=== PATIENT | female | born 1990 | race African-American/Black ===

== ENCOUNTER 2016-07-30 09:12 | Emergency (ER) | payer OTHER ==
--- NOTE | 2016-07-30 10:16 | ERRECORD ---
[facility] EMERGENCY RECORD HPI COUGH (09:24 WMEI) CHIEF COMPLAINT: Patient presents for evaluation of cough, productive of green sputum. HISTORIAN: History provided by patient. LOCATION: Symptoms are localized, sinus pressure. QUALITY: Denies choking sensation, Symptoms described as wheezing, occ at night. TIME COURSE: Gradual onset of symptoms, 2, days priror to arrival. ASSOCIATED WITH: No associated chest pain, No associated fever. EXACERBATED BY: Patient's condition exacerbated by nothing. RELIEVED BY: Patient's condition relieved by nothing. ROS (09:25 WMEI) CONSTITUTIONAL: Historian denies chills, denies fever. EYES: Historian denies eye pain, denies eye discharge. ENT: Historian denies otalgia, reports rhinorrhea, reports sinus pain, reports sore throat. CARDIOVASCULAR: Historian denies chest pain, no radiation, Historian denies diaphoresis. RESPIRATORY: Historian reports cough, denies shortness of breath, reports sputum. green. GI: Historian denies abdominal pain, denies nausea, denies vomiting. MUSCULOSKELETAL: Historian denies arthralgias, denies joint swelling, reports myalgias. SKIN: Historian denies skin changes, denies skin lesions. NEUROLOGIC: Historian denies confusion, denies dizziness, denies focal weakness, denies mental status changes. PSYCHIATRIC: Historian denies alcohol abuse, denies anxiety, denies drug abuse. PAST MEDICAL HISTORY (09:22 LGIB) MEDICAL HISTORY: Past medical history includes history of diabetes, Type II, Past medical history includes pulmonary disease, asthma. VERIFIED 07/30/16. FEMALE SURGICAL HISTORY: Surgical history of tonsillectomy. VERIFIED 07/30/16. PSYCHIATRIC HISTORY: No previous psychiatric history. SOCIAL HISTORY: Patient has no smoking history, Patient denies alcohol use, Patient denies drug use. VERIFIED 07/30/16. FAMILY HISTORY: Family history includes asthma, sibling, Family history includes coronary artery disease, father, maternal grandmother, Family history includes cerebral vascular accident, mother, father, Family history includes diabetes, father, maternal grandmother, Family history includes hypertension, father, maternal grandmother, Family history includes seizures, sibling. No significant family history. KNOWN ALLERGIES No Known Drug Allergies &a-1R&a+25V*p+0X*e5041V*c202B*c15G*c2P*p-0X&a-25V&a+1R Name: Barbie Douglas : 1990 F25 MedRec: [id number] AcctNum: [id number] Prepared: Sat Jul 30, 2016 19:52 by Interface Page 1 of 3 pMD [facility] EMERGENCY RECORD CURRENT MEDICATIONS (09:21 LGIB) glipiZIDE: TABLET : Strength - 5 mg : ORAL Patient Dose: 1 tab(s) Oral 2 times a day. metFORMIN: TABLET : Strength - 1,000 mg : ORAL Patient Dose: 1 tab(s) Oral 2 times a day. VITAL SIGNS (09:20 AHOO) VITAL SIGNS: BP: 133/95, Pulse: 91, Resp: 20, Temp: 98.3 (Oral), Pain: 8, O2 sat: 99 on Room Air, Time: 07/30/2016 09:20. PHYSICAL EXAM (09:26 WMEI) CONSTITUTIONAL: Vital Signs Reviewed, Patient afebrile, Patient appears non toxic, Patient alert and oriented to person, place and time. HEAD: Head exam included findings of head atraumatic, normocephalic. EYES: Conjunctiva normal, Sclera normal. ENT: Ear exam normal, Nose exam normal, Pharynx, injected bilaterally, no exudate, Maxillary sinuses with, tenderness bilaterally. NECK: Neck exam included findings of normal range of motion, Trachea midline. RESPIRATORY CHEST: Breath sounds clear, No wheezing, Chest exam included findings of chest movement symmetrical. ABDOMEN FEMALE: Abdominal exam included findings of abdomen nontender, Bowel sounds normal, Liver normal, Spleen normal. BACK: Back exam included findings of normal inspection, range of motion normal. UPPER EXTREMITY: Upper extremity exam included findings of inspection normal, Range of motion normal, Motor strength normal. LOWER EXTREMITY: Left lower leg exam normal, Right lower leg exam normal. NEURO: [place] coma scale 15, Neuro exam findings include patient oriented to person, place and time, Gait normal. SKIN: Skin exam included findings of skin warm, dry, and normal in color. LYMPHATIC: Lymphatic exam normal. PSYCHIATRIC: Psychiatric exam included findings of patient oriented to person place and time, Normal affect, Judgment normal, Insight normal. PROBLEM LIST No recorded problems DIAGNOSIS (09:57 WMEI) FINAL: PRIMARY: Acute bronchitis, ADDITIONAL: ACUTE SINUSITIS UNSPECIFIED. &a-1R&a+25V*p+0X*x2543S*c202B*c15G*c2P*p-0X&a-25V&a+1R Name: Barbie Douglas : 1990 5 MedRec: [id number] AcctNum: [id number] Prepared: Arjun Jul 30, 2016 19:52 by Interface Page 2 of 3 pMD [facility] EMERGENCY RECORD PRESCRIPTION (09:56 WMEI) Tessalon: CAPSULE : 200 mg : ORAL : Quantity: 1 Unit: tab(s) Route: ORAL Schedule: every 8 hours PRN Dispense: 21 Unit: tab(s) May substitute. Refills: No Refills . NOTES: No refills. Zithromax oral: CAPSULE : 250 mg : ORAL : Quantity: 1 Unit: tab(s) Route: ORAL Schedule: once a day (in the morning) Dispense: 6 Unit: tab(s) May substitute. Refills: No Refills . NOTES: ^s=No refills No refills. DISPOSITION PATIENT: Disposition Type: Discharge, Disposition: *Discharge Home. (09:57 WMEI) Patient left the department. (10:05 [facility]) Noonan: AHOO=KAYLEIGH Gifford, October LGIB=JIM Costello Lauren WMEI=DO Lockett William &a-1R&a+25V*p+0X*k1441R*c202B*c15G*c2P*p-0X&a-25V&a+1R Name: Barbie Douglas : 1990 F25 MedRec: [id number] AcctNum: [id number] Prepared: Arjun Jul 30, 2016 19:52 by Interface Page 3 of 3 pMD MTDD
--- NOTE | 2016-07-30 10:20 | PICIS ---
[facility] EMERGENCY RECORD TRIAGE ([facility] Jul 30, 2016 09:20 LGIB) TRIAGE NOTES: PRODUCTIVE COUGH, SORE THROAT. ([facility] Jul 30, 2016 09:20 LGIB) PATIENT: NAME: Barbie Douglas, AGE: 25, GENDER: female, : Sat 1990, TIME OF GREET: Sat Jul 30, 2016 09:13, PREFERRED LANGUAGE: Turkmen, ETHNICITY: Not or , ECODE BILLING MAP: [facility], SSN: [id number], Zip Code: [address], KG WEIGHT: [phone], PHONE: , , , PERSON ID: [id number], PAYMENT: [employer], PCP: GENA. ([facility] Jul 30, 2016 09:20 LGIB) COMPLAINT: COUGH, SORE THROAT. ([facility] Jul 30, 2016 09:20 LGIB) ADMISSION: URGENCY: 4 Non Urgent, ADMISSION SOURCE: Home, TRANSPORT: CAR, BED: ER -02. ([facility] Jul 30, 2016 09:20 LGIB) SIRS SCORING: Heart Rate 55-109 (0), Temp range 96.8-101.1 (0), respiratory rate 12-24 (0), Mental Status altered: no (0), Total SIRS Score 0. (09:22 LGIB) LMP: Last menstrual period: 07/27/2016. (09:22 LGIB) TREATMENTS IN PROGRESS: Treatments given Prehospital: DAYQUIL 5 HOURS [employer]ORDIN[employer]. (09:22 LGIB) PROVIDERS: TRIAGE NURSE: Jaye Costello RN. ([facility] Jul 30, 2016 09:20 LGIB) PREVIOUS VISIT ALLERGIES: No Known Drug Allergies. ([facility] Jul 30, 2016 09:20 LGIB) No Known Drug Allergies. (09:22 LGIB) KNOWN ALLERGIES No Known Drug Allergies CURRENT MEDICATIONS (09:21 LGIB) glipiZIDE: TABLET : Strength - 5 mg : ORAL Patient Dose: 1 tab(s) Oral 2 times a day. metFORMIN: TABLET : Strength - 1,000 mg : ORAL Patient Dose: 1 tab(s) Oral 2 times a day. VITAL SIGNS (09:20 AHOO) VITAL SIGNS: BP: 133/95, Pulse: 91, Resp: 20, Temp: 98.3 (Oral), Pain: 8, O2 sat: 99 on Room Air, Time: 07/30/2016 09:20. NURSING ASSESSMENT: RESPIRATORY /CHEST (09:25 LGIB) CONSTITUTIONAL: Complex assessment performed, Patient arrives ambulatory, Gait steady, History obtained from patient, Patient appears comfortable, Patient cooperative, Patient alert, Oriented to person, place and time, Skin warm, Skin dry, Skin normal in color, Mucous membranes pink, Mucous membranes moist, Patient is well-groomed, Patient complains of COUGH, SORE THROAT. PAIN: on a scale 0-10 patient rates pain as 8, PT NOT APPEARING TO BE IN SEVERE PAIN. PAIN DOES WORSEN WHILE COUGHING., Nothing has been tried to alleviate the &a-1R&a+25V*p+0X*a5838X*c202B*c15G*c2P*p-0X&a-25V&a+1R Name: Barbie Douglas : 1990 F25 MedRec: [id number] AcctNum: [id number] Prepared: Sat Jul 30, 2016 19:52 by Interface Page 1 of [address] [facility] EMERGENCY RECORD pain. RESPIRATORY/CHEST: Breath sounds clear, Respiratory assessment findings include respiratory effort easy, Respirations regular, Conversing normally, Neck and chest exam findings include trachea midline, Chest expansion equal, Chest movement symmetrical, no signs of distress, no retractions noted, no cyanosis, Associated with cough, productive of, no associated fever. ENT: Ear assessment findings include ear normal to inspection, Nasal assessment findings include nose normal to inspection, Mouth and throat assessment findings include mouth inspection normal. NURSING PROCEDURE: DISCHARGE NOTE (09:58 AHOO) DISCHARGE: Patient discharged to home, ambulating without assistance, family driving, accompanied by other family member, Summary of Care printed/ provided, Transition record given to patient, Discharge instructions given to patient, Prescriptions given and instructions on side effects given, Above person(s) verbalized understanding of discharge instructions and follow-up care, Patient treated and evaluated by physician. ORDER DETAILS Order Name: Influenza A&B Ag Screen, Status: Active, Time: 09:24 07/30/2016, User: [employer], - Ordered for: DO Lockett William, - Entered by: DO Lockett William - Sat Jul 30, 2016 09:24, - Quantity: 1. HPI COUGH (09:24 WMEI) CHIEF COMPLAINT: Patient presents for evaluation of cough, productive of green sputum. HISTORIAN: History provided by patient. LOCATION: Symptoms are localized, sinus pressure. QUALITY: Denies choking sensation, Symptoms described as wheezing, occ at night. TIME COURSE: Gradual onset of symptoms, 2, days priror to arrival. ASSOCIATED WITH: No associated chest pain, No associated fever. EXACERBATED BY: Patient's condition exacerbated by nothing. RELIEVED BY: Patient's condition relieved by nothing. ROS (09:25 WMEI) CONSTITUTIONAL: Historian denies chills, denies fever. EYES: Historian denies eye pain, denies eye discharge. ENT: Historian denies otalgia, reports rhinorrhea, reports sinus pain, reports sore throat. CARDIOVASCULAR: Historian denies chest pain, no radiation, Historian denies diaphoresis. RESPIRATORY: Historian reports cough, denies shortness of breath, reports sputum. green. GI: Historian denies abdominal pain, denies nausea, denies &a-1R&a+25V*p+0X*r8421R*c202B*c15G*c2P*p-0X&a-25V&a+1R Name: Barbie Douglas : 1990 F25 MedRec: [id number] AcctNum: [id number] Prepared: Sat Jul 30, 2016 19:52 by Interface Page 2 of [address] [facility] EMERGENCY RECORD vomiting. MUSCULOSKELETAL: Historian denies arthralgias, denies joint swelling, reports myalgias. SKIN: Historian denies skin changes, denies skin lesions. NEUROLOGIC: Historian denies confusion, denies dizziness, denies focal weakness, denies mental status changes. PSYCHIATRIC: Historian denies alcohol abuse, denies anxiety, denies drug abuse. PAST MEDICAL HISTORY (09:22 LGIB) MEDICAL HISTORY: Past medical history includes history of diabetes, Type II, Past medical history includes pulmonary disease, asthma. VERIFIED 07/30/16. FEMALE SURGICAL HISTORY: Surgical history of tonsillectomy. VERIFIED 07/30/16. PSYCHIATRIC HISTORY: No previous psychiatric history. SOCIAL HISTORY: Patient has no smoking history, Patient denies alcohol use, Patient denies drug use. VERIFIED 07/30/16. FAMILY HISTORY: Family history includes asthma, sibling, Family history includes coronary artery disease, father, maternal grandmother, Family history includes cerebral vascular accident, mother, father, Family history includes diabetes, father, maternal grandmother, Family history includes hypertension, father, maternal grandmother, Family history includes seizures, sibling. No significant family history. PHYSICAL EXAM (09:26 WMEI) CONSTITUTIONAL: Vital Signs Reviewed, Patient afebrile, Patient appears non toxic, Patient alert and oriented to person, place and time. HEAD: Head exam included findings of head atraumatic, normocephalic. EYES: Conjunctiva normal, Sclera normal. ENT: Ear exam normal, Nose exam normal, Pharynx, injected bilaterally, no exudate, Maxillary sinuses with, tenderness bilaterally. NECK: Neck exam included findings of normal range of motion, Trachea midline. RESPIRATORY CHEST: Breath sounds clear, No wheezing, Chest exam included findings of chest movement symmetrical. ABDOMEN FEMALE: Abdominal exam included findings of abdomen nontender, Bowel sounds normal, Liver normal, Spleen normal. BACK: Back exam included findings of normal inspection, range of motion normal. UPPER EXTREMITY: Upper extremity exam included findings of inspection normal, Range of motion normal, Motor strength normal. LOWER EXTREMITY: Left lower leg exam normal, Right lower leg exam normal. NEURO: [place] coma scale 15, Neuro exam findings include patient oriented to person, place and time, Gait normal. &a-1R&a+25V*p+0X*v7303I*c202B*c15G*c2P*p-0X&a-25V&a+1R Name: Barbie Douglas : 1990 F25 MedRec: [id number] AcctNum: [id number] Prepared: Sat Jul 30, 2016 19:52 by Interface Page 3 of [address] [facility] EMERGENCY RECORD SKIN: Skin exam included findings of skin warm, dry, and normal in color. LYMPHATIC: Lymphatic exam normal. PSYCHIATRIC: Psychiatric exam included findings of patient oriented to person place and time, Normal affect, Judgment normal, Insight normal. LAB INTERPRETATION (09:56 WMEI) INTERPRETATION: Influenza negative. EVENTS TRANSFER: Triage to Emergency Emergency Room -02. (Sat Jul 30, 2016 09:20 LGIB) Removed from Emergency Emergency Room -02. (10:05 AHOO) PROBLEM LIST No recorded problems DIAGNOSIS (09:57 WMEI) FINAL: PRIMARY: Acute bronchitis, ADDITIONAL: ACUTE SINUSITIS UNSPECIFIED. DISPOSITION PATIENT: Disposition Type: Discharge, Disposition: *Discharge Home. (09:57 WMEI) Patient left the department. (10:05 AHOO) INSTRUCTION (09:58 WMEI) DISCHARGE: BRONCHITIS, ABX TX (ADULT). SPECIAL: Follow-up with your primary physician as needed. PRESCRIPTION (09:56 WMEI) Tessalon: CAPSULE : 200 mg : ORAL : Quantity: 1 Unit: tab(s) Route: ORAL Schedule: every 8 hours PRN Dispense: 21 Unit: tab(s) May substitute. Refills: No Refills . NOTES: No refills. Zithromax oral: CAPSULE : 250 mg : ORAL : Quantity: 1 Unit: tab(s) Route: ORAL Schedule: once a day (in the morning) Dispense: 6 Unit: tab(s) May substitute. Refills: No Refills . NOTES: ^s=No refills No refills. IMAGING *DISCHARGE INSTRUCTIONS RECEIPT: Image captured from scanner. (10:03 OO) LAB RESULTS: Image captured from scanner. (10:04 [facility]) *SUPPLY CHARGE SHEET: Image captured from scanner. (10:04 [facility]) &a-1R&a+25V*p+0X*d3070D*c202B*c15G*c2P*p-0X&a-25V&a+1R Name: Barbie Douglas : 1990 F25 MedRec: [id number] AcctNum: [id number] Prepared: Sat Jul 30, 2016 19:52 by Interface Page 4 of [address] [facility] EMERGENCY RECORD ADMIN (19:44 WMEI) DIGITAL SIGNATURE: DO Lockett William. Noonan: AHOO=KAYLEIGH Gifford, October LGIB=JIM Costello Lauren WMEI=DO Lockett William &a-1R&a+25V*p+0X*h7527I*c202B*c15G*c2P*p-0X&a-25V&a+1R Name: Barbie Douglas : 1990 F25 MedRec: [id number] AcctNum: [id number] Prepared: Arjun Jul 30, 2016 19:52 by Interface Page 5 of 5 pMD MTDD
== END 2016-07-30 09:58 | disposition home or self-care (01) ==
LOC: BURERS 09:12
DX: J20.9 Acute bronchitis, unspecified (principal); J01.90 Acute sinusitis, unspecified; E11.9 Type 2 diabetes mellitus without complications; J45.909 Unspecified asthma, uncomplicated; Z79.84 Long term (current) use of oral hypoglycemic drugs; Z79.899 Other long term (current) drug therapy
CPT/HCPCS: 99283

== ENCOUNTER 2016-08-11 20:41 | Emergency (ER) | payer SELFPAY ==
[2016-08-11] MEDS ORDERED: Benzonatate 100 MG CAP ONE ×2 (21:30→21:33)
[2016-08-11] MEDS ORDERED: Oseltamivir 75 MG CAP ONE (21:35)
--- NOTE | 2016-08-11 22:29 | RAD ---
CHEST TWO VIEWS 08/11/16 Comparison is made with the prior study of 04/13/15. The heart is normal in size and the lungs are clear. No infiltrate or effusion was seen. The left hi lum is a little rounder today than it was before. This may just be due to positioning of the patient , but sometimes can be seen with adenopathy. IMPRESSION: 1. No acute parenchymal findings. 2. Minimal prominence of the left hilum which may or may not be significant. Code T POS: HOME
== END 2016-08-11 21:45 | disposition home or self-care (01) ==
LOC: BURERS 20:41
DX: J11.1 Influenza due to unidentified influenza virus with other respiratory manifestations (principal); E11.9 Type 2 diabetes mellitus without complications; J45.909 Unspecified asthma, uncomplicated; I10 Essential (primary) hypertension; Z79.4 Long term (current) use of insulin; Z79.899 Other long term (current) drug therapy
CPT/HCPCS: 36416; 71020; 99283

== ENCOUNTER 2016-08-17 17:26 | Emergency (ER) | payer OTHER, SELFPAY ==
[2016-08-17] MEDS ORDERED: Benzonatate 100 MG CAP ONE (18:04)
== END 2016-08-17 18:03 | disposition home or self-care (01) ==
LOC: BURERS 17:26
DX: J11.1 Influenza due to unidentified influenza virus with other respiratory manifestations (principal); I10 Essential (primary) hypertension; J45.909 Unspecified asthma, uncomplicated; E11.9 Type 2 diabetes mellitus without complications; Z79.899 Other long term (current) drug therapy; Z79.84 Long term (current) use of oral hypoglycemic drugs
CPT/HCPCS: 99283

== ENCOUNTER 2017-01-11 07:26 | Emergency (ER) | payer OTHER ==
[2017-01-11] MEDS ORDERED: Ibuprofen 200 MG TAB ONE (07:47)
== END 2017-01-11 07:59 | disposition home or self-care (01) ==
LOC: BURERS 07:26
DX: S29.012A Strain of muscle and tendon of back wall of thorax, initial encounter (principal); S46.911A Strain of unspecified muscle, fascia and tendon at shoulder and upper arm level, right arm, initial encounter; S16.1XXA Strain of muscle, fascia and tendon at neck level, initial encounter; J45.909 Unspecified asthma, uncomplicated; I10 Essential (primary) hypertension; Z79.84 Long term (current) use of oral hypoglycemic drugs; Z79.899 Other long term (current) drug therapy; X50.0XXA Overexertion from strenuous movement or load, initial encounter
CPT/HCPCS: 99283

== ENCOUNTER 2017-01-13 11:59 | Emergency (ER) | payer OTHER ==
[2017-01-13 12:38] LABS: Bilirubin Negative (Negative); Blood, Urine Negative (Negative); Clarity Clear (Clear); Glucose, Urine (Dipstick) 500 mg/dL (Negative); Leukocyte Negative (Negative); Nitrite Negative (Negative); Protein, Urine (Dipstick) Trace mg/dL (Neg-Trace); Specific Gravity, Urine 1.015 (1.005-1.030); Urobilinogen 0.2 mg/dL (0.2-1.0); pH, Urine 6.5 (5.0-9.0)
[2017-01-13] MEDS ORDERED: traMADol HCl 50 MG TAB ONE (12:54)
== END 2017-01-13 13:07 | disposition home or self-care (01) ==
LOC: BURERS 11:59
DX: S23.3XXA Sprain of ligaments of thoracic spine, initial encounter (principal); E11.9 Type 2 diabetes mellitus without complications; J45.909 Unspecified asthma, uncomplicated; I10 Essential (primary) hypertension; Z79.84 Long term (current) use of oral hypoglycemic drugs; Z79.899 Other long term (current) drug therapy; X50.0XXA Overexertion from strenuous movement or load, initial encounter
CPT/HCPCS: 81003; 99283

== ENCOUNTER 2017-02-19 15:03 | Emergency (ER) | payer OTHER | END 2017-02-19 15:47 | disposition home or self-care (01) | LOC: BURERS 15:03 | DX: E11.65 Type 2 diabetes mellitus with hyperglycemia (principal); I10 Essential (primary) hypertension; J45.909 Unspecified asthma, uncomplicated; Z79.84 Long term (current) use of oral hypoglycemic drugs; Z79.891 Long term (current) use of opiate analgesic; Z79.899 Other long term (current) drug therapy | CPT/HCPCS: 36416; 99284 ==

== ENCOUNTER 2017-03-11 16:24 | Emergency (ER) | payer OTHER ==
[2017-03-11 17:28] LABS: ALT (SGPT) 18 U/L (8-55); AST (SGOT) 14 U/L (5-34); Albumin 3.7 g/dL (3.5-5.0); Alkaline Phosphatase 90 U/L (40-150); Anion Gap 20 mmol/L (10-20); BUN (Urea Nitrogen) 6 mg/dL (7.0-18.7); Bilirubin, Total 0.3 mg/dL (0.2-1.2); Calc. Creatinine Clearance 0 mL/min (70-130); Calcium 9.3 mg/dL (7.8-10.44); Carbon Dioxide 18 mmol/L (22-29); Chloride 101 mmol/L (98-107); Estimated GFR-MDRD Greater than 90; Globulin 4.5 g/dL (2.4-3.5); Glucose 395 mg/dL (70-105); Lipase 69 U/L (8-78); Protein, Total 8.2 g/dL (6.0-8.3); Sodium 135 mmol/L (136-145)
[2017-03-11 17:30] LABS: CKMB 0.8 ng/mL (0-6.6); Troponin I Less than 0.010 ng/mL (< 0.028)
[2017-03-11 17:34] LABS: Hemoglobin 13.2 g/dL (12.0-16.0); Lymphocytes 27 % (21-51); MDiff Complete? YES; Mean Corpuscular HGB CONC 32.9 g/dL (32.0-36.0); Mean Corpuscular Hemoglobin 26.3 pg (27.0-31.0); Monocytes 3 % (0-10); Neutrophil 70 % (42-75); Platelet Count 273 thou/uL (130-400); RBC Distribution Width 12.1 % (11.5-14.5); White Blood Cell (WBC) Count 10.9 thou/uL (4.8-10.8)
[2017-03-11 17:42] LABS: INR-International Normal Ratio 0.9; PTT 31.9 SEC (22.9-36.1); Prothrombin Time 12.4 SEC (12.0-14.7)
[2017-03-11] MEDS ORDERED: Ketorolac Tromethamine 30 MG/ML VIAL ONE (18:42)
--- NOTE | 2017-03-11 21:14 | RAD ---
PORTABLE CHEST 03/11/17 Comparison is made with a 08/11/16 study. The heart is normal in sizes and the lungs are clear. No infiltrate, effusion, or congestive change was seen. the trachea is midline. IMPRESSION: No acute finding. POS: HOME
== END 2017-03-11 18:58 | disposition home or self-care (01) ==
LOC: BURERS 16:24
DX: M94.0 Chondrocostal junction syndrome [Tietze] (principal); J06.9 Acute upper respiratory infection, unspecified; E66.01 Morbid (severe) obesity due to excess calories; E11.9 Type 2 diabetes mellitus without complications; J45.909 Unspecified asthma, uncomplicated; I10 Essential (primary) hypertension; Z79.84 Long term (current) use of oral hypoglycemic drugs; Z79.899 Other long term (current) drug therapy
CPT/HCPCS: 71010; 80053; 82553; 83690; 84484; 85025; 85610; 85730; 93005; 94760; 96374; J1885

== ENCOUNTER 2017-05-23 15:59 | Emergency (ER) | payer OTHER, SELFPAY | END 2017-05-23 16:19 | disposition home or self-care (01) | LOC: BURERS 15:59 | DX: K04.7 Periapical abscess without sinus (principal); J45.909 Unspecified asthma, uncomplicated; I10 Essential (primary) hypertension; E11.9 Type 2 diabetes mellitus without complications | CPT/HCPCS: 99282 ==

== ENCOUNTER 2017-07-07 04:39 | Emergency (ER) | payer SELFPAY ==
[2017-07-07 05:19] LABS: Bilirubin Negative (Negative); Blood, Urine Negative (Negative); Clarity Clear (Clear); Glucose, Urine (Dipstick) 500 mg/dL (Negative); Leukocyte Negative (Negative); Nitrite Negative (Negative); Protein, Urine (Dipstick) Negative (Neg-Trace); Specific Gravity, Urine 1.015 (1.005-1.030); Urobilinogen 0.2 mg/dL (0.2-1.0)
== END 2017-07-07 05:34 | disposition home or self-care (01) ==
LOC: BURERS 04:39
DX: M54.5 Low back pain (principal); M54.6 Pain in thoracic spine; E11.9 Type 2 diabetes mellitus without complications; J45.909 Unspecified asthma, uncomplicated; I10 Essential (primary) hypertension; Z79.84 Long term (current) use of oral hypoglycemic drugs
CPT/HCPCS: 81003; 99283

== ENCOUNTER 2017-10-14 06:31 | Emergency (ER) | payer SELFPAY ==
[2017-10-14] MEDS ORDERED: Sulfameth/Trimethoprim DS 800-160mg TAB ONE (07:43)
== END 2017-10-14 07:49 | disposition home or self-care (01) ==
LOC: BURERS 06:31
DX: L02.212 Cutaneous abscess of back [any part, except buttock and flank] (principal)
CPT/HCPCS: 10060; 87070; 87205

== ENCOUNTER 2017-12-21 07:46 | Emergency (ER) | payer SELFPAY ==
[2017-12-21 08:11] LABS: Clarity Cloudy (Clear); Glucose, Urine (Dipstick) 500 mg/dL (Negative); Leukocyte Negative (Negative); Nitrite Negative (Negative); Protein, Urine (Dipstick) 30 mg/dL (Neg-Trace); pH, Urine 5.5 (5.0-9.0)
[2017-12-21 08:12] LABS: Bilirubin Negative (Negative); Blood, Urine Large (Negative); Urobilinogen 0.2 mg/dL (0.2-1.0)
[2017-12-21 08:13] LABS: Pregnancy Test - Urine (BHCG) Negative (Negative); Pregu Control Background? CLEAR/WHITE (CLR/WHITE); Pregu Control Bar Appear? YES (CONTROL BAR)
[2017-12-21 08:25] LABS: Bacteria/HPF Rare-Few HPF (None Seen); RBC/HPF GREATER THAN 50-TNTC HPF (0-3); Squamous Epithelial None Seen HPF (0-3); WBC/HPF 0-3 HPF (0-3)
[2017-12-21 08:32] LABS: #Basophils 0.2 thou/uL (0.0-0.2); #Eosinphils 0.1 thou/uL (0.0-0.7); #Lymphocytes 3.2 thou/uL (1.20-3.40); #Monocytes 0.5 thou/uL (0.11-0.59); #Neutrophils 5.7 thou/uL (1.40-6.50); %Basophils 2.4 % (0.0-1.0); %Eosinophils 0.6 % (0.0-10.0); %Lymphocytes 33.1 % (21.0-51.0); %Monocytes 5.3 % (0.0-10.0); %Neutrophils 58.6 % (42.0-75.0); Hemoglobin 13.9 g/dL (12.0-16.0); Mean Corpuscular HGB CONC 34.8 g/dL (32.0-36.0); Mean Corpuscular Hemoglobin 25.6 pg (27.0-31.0); Mean Corpuscular Volume 73.6 fL (78.0-98.0); Mean Platelet Volume 8.8 fL (7.4-10.4); Platelet Count 322 thou/uL (130-400); RBC Distribution Width 12.2 % (11.5-14.5); Red Blood Cell (RBC) Count 5.42 mill/uL (4.20-5.40); White Blood Cell (WBC) Count 9.7 thou/uL (4.8-10.8)
[2017-12-21 08:43] LABS: ALT (SGPT) 13 U/L (8-55); AST (SGOT) 14 U/L (5-34); Albumin 4.1 g/dL (3.5-5.0); Alkaline Phosphatase 61 U/L (40-150); Anion Gap 18 mmol/L (10-20); BUN (Urea Nitrogen) 8 mg/dL (7.0-18.7); Bilirubin, Total 0.5 mg/dL (0.2-1.2); Calc. Creatinine Clearance 0 mL/min (70-130); Calcium 9.6 mg/dL (7.8-10.44); Carbon Dioxide 20 mmol/L (22-29); Chloride 102 mmol/L (98-107); Estimated GFR-MDRD Greater than 90; Globulin 4.5 g/dL (2.4-3.5); Glucose 304 mg/dL (70-105); Lipase 44 U/L (8-78); Potassium 3.9 mmol/L (3.5-5.1); Protein, Total 8.6 g/dL (6.0-8.3); Sodium 136 mmol/L (136-145)
[2017-12-21 08:55] LABS: MDiff Complete? YES; Microcytosis SLIGHT = 6-15 cells (100X) (0-5/hpf); PLT Morphology Comment Appears Adequate
--- NOTE | 2017-12-21 16:44 | CT ---
CT ABDOMEN AND PELVIS WITH CONTRAST 12/21/[address] of the abdomen and pelvis was done using IV contrast only as requested. Axial slices were a cquired, then coronal and sagittal reconstructions were done. Comparison is made with a prior study f rom March 2015. The lung bases are clear. The liver, spleen, pancreas, gallbladder, adrenal glands, kidneys, and abdo alejandro aorta all were unremarkable in appearance. There is no sign of urinary tract obstruction. The bowel shows no distention or wall thickening. The appendix appears normal. There is no sign of di verticulitis or colitis. No free air or free fluid was seen in the abdomen. A small fat filled umbili andreea hernia is noted, of no concern. CT of the pelvis shows a rounded 4 cm left adnexal structure. Is most likely the left ovary, possibly with a cyst in it. Ultrasound would be diagnostic. There is no substantial free fluid. No inflammato ry change is seen in the pelvis. IMPRESSION: 1. No acute abdominal or pelvic findings. 2. Mild enlargement of the left ovary, possibly with a cyst. Ultrasound recommended. POS: HOME
== END 2017-12-21 09:20 | disposition home or self-care (01) ==
LOC: BURERS 07:46
DX: R10.32 Left lower quadrant pain (principal); E11.9 Type 2 diabetes mellitus without complications; J45.909 Unspecified asthma, uncomplicated; Z79.84 Long term (current) use of oral hypoglycemic drugs
CPT/HCPCS: 74177; 80053; 81003; 81015; 81025; 83690; 85025

== ENCOUNTER 2018-04-25 22:20 | Emergency (ER) | payer SELFPAY ==
[2018-04-26 00:10] LABS: CKMB 0.9 ng/mL (0-6.6); Troponin I Less than 0.010 ng/mL (< 0.028)
== END 2018-04-26 00:35 | disposition home or self-care (01) ==
LOC: BURERS 22:20
DX: S29.011A Strain of muscle and tendon of front wall of thorax, initial encounter (principal); E11.9 Type 2 diabetes mellitus without complications; J45.909 Unspecified asthma, uncomplicated; Z79.4 Long term (current) use of insulin; X50.9XXA Other and unspecified overexertion or strenuous movements or postures, initial encounter; Y92.69 Other specified industrial and construction area as the place of occurrence of the external cause
CPT/HCPCS: 36415; 71046; 82553; 84484; 93005

== ENCOUNTER 2018-06-24 13:45 | Emergency (ER) | payer OTHER, SELFPAY ==
[2018-06-24] MEDS ORDERED: Dexamethasone 4 MG TAB ONE (13:56)
== END 2018-06-24 14:09 | disposition home or self-care (01) ==
LOC: BURERS 13:45
DX: J06.9 Acute upper respiratory infection, unspecified (principal); E11.9 Type 2 diabetes mellitus without complications; I10 Essential (primary) hypertension; Z79.899 Other long term (current) drug therapy
CPT/HCPCS: 99283; J8540

== ENCOUNTER 2018-08-10 17:28 | Emergency (ER) | payer OTHER ==
[2018-08-10] MEDS ORDERED: HYDROcodone/Acetaminophen 10/325 mg Tablet ONE (17:49)
[2018-08-10] MEDS ORDERED: Ketorolac Tromethamine 30 MG/ML VIAL ONE (17:49)
== END 2018-08-10 17:58 | disposition home or self-care (01) ==
LOC: BURERS 17:28
DX: K08.89 Other specified disorders of teeth and supporting structures (principal); E11.9 Type 2 diabetes mellitus without complications; I10 Essential (primary) hypertension; Z79.899 Other long term (current) drug therapy; Z79.4 Long term (current) use of insulin
CPT/HCPCS: 96372; J1885

== ENCOUNTER 2018-09-15 12:30 | Emergency (ER) | payer OTHER ==
[2018-09-15] MEDS ORDERED: Ondansetron ODT 4 MG TAB ONE (12:51)
== END 2018-09-15 13:19 | disposition home or self-care (01) ==
LOC: BURERS 12:30
DX: R11.2 Nausea with vomiting, unspecified (principal); E11.9 Type 2 diabetes mellitus without complications; I10 Essential (primary) hypertension; Z79.4 Long term (current) use of insulin; Z79.899 Other long term (current) drug therapy
CPT/HCPCS: 36416; 99283; Q0162

== ENCOUNTER 2018-10-02 10:24 | Emergency (ER) | payer OTHER ==
--- NOTE | 2018-10-02 19:38 | RAD ---
LEFT SHOULDER THREE VIEWS: 10/02/18 No fracture, dislocation, or AC joint widening was seen. No cause for shoulder pain was seen. IMPRESSION: No acute finding. POS: HOME
== END 2018-10-02 11:22 | disposition home or self-care (01) ==
LOC: BURERS 10:24
DX: M25.512 Pain in left shoulder (principal); E11.9 Type 2 diabetes mellitus without complications; I10 Essential (primary) hypertension; Z79.4 Long term (current) use of insulin

== ENCOUNTER 2018-11-22 19:45 | Emergency (ER) | payer OTHER ==
[2018-11-22] MEDS ORDERED: Acetaminophen 500 MG TAB ONE (20:10)
[2018-11-22] MEDS ORDERED: Ondansetron PF 4 MG/2 ML Vial ONE (20:10)
[2018-11-22] MEDS ORDERED: Ketorolac Tromethamine 30 MG/ML VIAL ONE (20:11)
[2018-11-22 20:30] LABS: Clarity Clear (Clear); Specific Gravity, Urine 1.025 (1.005-1.030)
[2018-11-22 20:31] LABS: Bilirubin Negative (Negative); Blood, Urine Negative (Negative); Glucose, Urine (Dipstick) 500 mg/dL (Negative); Leukocyte Negative (Negative); Nitrite Negative (Negative); Protein, Urine (Dipstick) 30 mg/dL (Neg-Trace); Urobilinogen 0.2 mg/dL (0.2-1.0)
[2018-11-22 20:39] LABS: Bacteria/HPF 1+ HPF (None Seen); Other Microscopic Description 1+ MUCUS; RBC/HPF 0-3 HPF (0-3); Squamous Epithelial 0-3 HPF (0-3); WBC/HPF 0-3 HPF (0-3)
[2018-11-22 20:44] LABS: Base Excess-Venous 2.9 mmol/L (-2.0 to 3.0); Bicarbonate (HCO3v) 29.1 mmol/L (22.0-28.0); Calcium, Ionized 1.15 mmol/L (See Comments:); Chloride 102 mmol/L (98-107); O2 Tension (PvO2) 29.1 mmHg (35.0-45.0); Potassium 3.7 mmol/L (3.5-5.1); Sodium 136 mmol/L (138-145); T. Carbon Dioxide 30.6 mmol/L (22.0-28.0); pH (Venous) 7.381 (7.320-7.430); vO2 Saturation-calc 53.1 % (60.0-85.0)
[2018-11-22 20:45] LABS: #Basophils 0.1 thou/uL (0.0-0.2); #Eosinphils 0.1 thou/uL (0.0-0.7); #Lymphocytes 1.4 thou/uL (1.20-3.40); #Monocytes 0.7 thou/uL (0.11-0.59); #Neutrophils 7.6 thou/uL (1.40-6.50); %Basophils 1.3 % (0.0-1.0); %Eosinophils 0.6 % (0.0-10.0); %Lymphocytes 13.9 % (21.0-51.0); %Monocytes 7.3 % (0.0-10.0); %Neutrophils 76.9 % (42.0-75.0); Hemoglobin 14.2 g/dL (12.0-16.0); Mean Corpuscular HGB CONC 31.9 g/dL (32.0-36.0); Mean Corpuscular Hemoglobin 25.3 pg (27.0-31.0); Mean Corpuscular Volume 79.5 fL (78.0-98.0); Mean Platelet Volume 9.3 fL (7.4-10.4); Platelet Count 282 thou/uL (130-400); RBC Distribution Width 13.1 % (11.5-14.5); Red Blood Cell (RBC) Count 5.59 mill/uL (4.20-5.40); White Blood Cell (WBC) Count 9.8 thou/uL (4.8-10.8)
[2018-11-22 20:48] LABS: ALT (SGPT) 21 U/L (8-55); AST (SGOT) 13 U/L (5-34); Albumin 4.2 g/dL (3.5-5.0); Alkaline Phosphatase 84 U/L (40-150); Anion Gap 18 mmol/L (10-20); BUN (Urea Nitrogen) 7 mg/dL (7.0-18.7); Bilirubin, Total 0.5 mg/dL (0.2-1.2); Calc. Creatinine Clearance 0 mL/min (70-130); Calcium 9.8 mg/dL (7.8-10.44); Carbon Dioxide 24 mmol/L (22-29); Chloride 99 mmol/L (98-107); Estimated GFR-MDRD Greater than 90; Globulin 4.3 g/dL (2.4-3.5); Glucose 271 mg/dL (70-105); Lipase 70 U/L (8-78); Potassium 3.7 mmol/L (3.5-5.1); Protein, Total 8.5 g/dL (6.0-8.3); Sodium 137 mmol/L (136-145)
== END 2018-11-22 23:13 | disposition home or self-care (01) ==
LOC: BURERS 19:45
DX: K52.9 Noninfective gastroenteritis and colitis, unspecified (principal); E86.0 Dehydration; E10.65 Type 1 diabetes mellitus with hyperglycemia; Z79.4 Long term (current) use of insulin; Z79.899 Other long term (current) drug therapy
CPT/HCPCS: 80053; 81003; 81015; 82330; 82803; 83605; 83690; 85014; 85025; 93005; 96361; 96374; 96375; J1885; J2405

== ENCOUNTER 2019-03-23 15:47 | Emergency (ER) | payer OTHER ==
[2019-03-23 16:17] LABS: Bilirubin Negative (Negative); Blood, Urine Negative (Negative); Clarity Cloudy (Clear); Glucose, Urine (Dipstick) 500 mg/dL (Negative); Leukocyte Negative (Negative); Nitrite Negative (Negative); Protein, Urine (Dipstick) Negative (Neg-Trace); Urobilinogen 0.2 mg/dL (Less than 2)
[2019-03-23 16:18] LABS: Pregnancy Test - Urine (BHCG) Negative (Negative); Pregu Control Background? CLEAR/WHITE (CLR/WHITE); Pregu Control Bar Appear? YES (CONTROL BAR); Specific Gravity 1.015 (1.002-1.036)
[2019-03-23 16:39] LABS: Hemoglobin 12.8 g/dL (12.0-16.0); Mean Corpuscular HGB CONC 32.9 g/dL (32.0-36.0); Mean Corpuscular Hemoglobin 26.6 pg (27.0-31.0); Mean Corpuscular Volume 80.9 fL (78.0-98.0); Mean Platelet Volume 9.3 fL (7.4-10.4); Platelet Count 285 thou/uL (130-400); RBC Distribution Width 12.3 % (11.5-14.5); Red Blood Cell (RBC) Count 4.82 mill/uL (4.20-5.40)
[2019-03-23 16:42] LABS: White Blood Cell (WBC) Count 9.3 thou/uL (4.8-10.8)
[2019-03-23 16:43] LABS: #Basophils 0.2 thou/uL (0.0-0.2); #Eosinphils 0.1 thou/uL (0.0-0.7); #Monocytes 0.5 thou/uL (0.11-0.59); #Neutrophils 5.5 thou/uL (1.40-6.50); %Basophils 2.3 % (0.0-1.0); %Eosinophils 0.9 % (0.0-10.0); %Lymphocytes 32.8 % (21.0-51.0); %Neutrophils 59.1 % (42.0-75.0); MDiff Complete? YES
[2019-03-23 16:48] LABS: ALT (SGPT) 21 U/L (8-55); AST (SGOT) 13 U/L (5-34); Albumin 3.8 g/dL (3.5-5.0); Alkaline Phosphatase 71 U/L (40-150); Anion Gap 16 mmol/L (10-20); BUN (Urea Nitrogen) 7 mg/dL (7.0-18.7); Bilirubin, Total 0.3 mg/dL (0.2-1.2); Calc. Creatinine Clearance 0 mL/min (70-130); Carbon Dioxide 23 mmol/L (22-29); Chloride 101 mmol/L (98-107); Estimated GFR-MDRD Greater than 90; Globulin 3.7 g/dL (2.4-3.5); Glucose 346 mg/dL (70-105); Lipase 49 U/L (8-78); Potassium 3.6 mmol/L (3.5-5.1); Protein, Total 7.5 g/dL (6.0-8.3); Sodium 136 mmol/L (136-145)
== END 2019-03-23 17:03 | disposition home or self-care (01) ==
LOC: BURERS 15:47
DX: R10.9 Unspecified abdominal pain (principal); E11.9 Type 2 diabetes mellitus without complications; Z79.4 Long term (current) use of insulin; I10 Essential (primary) hypertension; Z79.899 Other long term (current) drug therapy
CPT/HCPCS: 80053; 81003; 81025; 83690; 85025; 99284

== ENCOUNTER 2019-06-11 22:57 | Emergency (ER) | payer OTHER, SELFPAY ==
[2019-06-11 23:22] LABS: Bilirubin Negative (Negative); Blood, Urine Negative (Negative); Glucose, Urine (Dipstick) 500 mg/dL (Negative); Leukocyte Negative (Negative); Nitrite Negative (Negative); Protein, Urine (Dipstick) Negative (Neg-Trace)
[2019-06-11 23:23] LABS: Clarity Hazy (Clear)
[2019-06-11] MEDS ORDERED: traMADol HCl 50 MG TAB ONE (23:41)
[2019-06-11] MEDS ORDERED: Ibuprofen 800 MG TAB ONE (23:41)
[2019-06-11 23:51] LABS: Pregnancy Test - Urine (BHCG) Negative (Negative); Pregu Control Background? CLEAR/WHITE (CLR/WHITE); Pregu Control Bar Appear? YES (CONTROL BAR); Specific Gravity 1.012 (1.002-1.036)
== END 2019-06-11 23:43 | disposition home or self-care (01) ==
LOC: BURERS 22:57
DX: N83.209 Unspecified ovarian cyst, unspecified side (principal); E11.9 Type 2 diabetes mellitus without complications; I10 Essential (primary) hypertension; Z79.4 Long term (current) use of insulin; Z79.899 Other long term (current) drug therapy
CPT/HCPCS: 36416; 81003; 81025; 99284

== ENCOUNTER 2019-08-07 22:47 | Emergency (ER) | payer OTHER, SELFPAY | END 2019-08-07 23:42 | disposition home or self-care (01) | LOC: BURERS 22:47 | DX: J06.9 Acute upper respiratory infection, unspecified (principal); E11.9 Type 2 diabetes mellitus without complications; I10 Essential (primary) hypertension; Z79.4 Long term (current) use of insulin; Z79.1 Long term (current) use of non-steroidal anti-inflammatories (NSAID); Z79.899 Other long term (current) drug therapy | CPT/HCPCS: J7620 ==

== ENCOUNTER 2019-08-15 21:26 | Emergency (ER) | payer OTHER ==
[2019-08-15] MEDS ORDERED: Benzonatate 100 MG CAP ONE (21:49)
== END 2019-08-15 21:57 | disposition home or self-care (01) ==
LOC: BURERS 21:26
DX: J20.9 Acute bronchitis, unspecified (principal); I10 Essential (primary) hypertension; E11.9 Type 2 diabetes mellitus without complications; Z79.4 Long term (current) use of insulin; Z79.899 Other long term (current) drug therapy
CPT/HCPCS: 99283

== ENCOUNTER 2020-02-17 15:57 | Emergency (ER) | payer OTHER ==
[2020-02-17 16:19] LABS: Bilirubin Negative (Negative); Blood, Urine Negative (Negative); Clarity Clear (Clear); Glucose, Urine (Dipstick) 500 mg/dL (Negative); Ketone, Urine Negative (Negative); Leukocyte Negative (Negative); Nitrite Negative (Negative); Protein, Urine (Dipstick) Negative (Neg-Trace); Urobilinogen 0.2 mg/dL (Less than 2)
[2020-02-17 16:24] LABS: Pregnancy Test - Urine (BHCG) Negative (Negative)
[2020-02-17 16:26] LABS: Pregu Control Background? CLEAR/WHITE (CLR/WHITE); Pregu Control Bar Appear? YES (CONTROL BAR)
== END 2020-02-17 16:35 | disposition home or self-care (01) ==
LOC: BURERS 15:57
DX: R10.9 Unspecified abdominal pain (principal); E11.65 Type 2 diabetes mellitus with hyperglycemia; I10 Essential (primary) hypertension; E78.2 Mixed hyperlipidemia; J45.909 Unspecified asthma, uncomplicated; F31.9 Bipolar disorder, unspecified; Z79.899 Other long term (current) drug therapy; Z79.4 Long term (current) use of insulin
CPT/HCPCS: 36416; 81003; 81025; 99284

== ENCOUNTER 2020-06-10 04:29 | Emergency (ER) | payer OTHER ==
[2020-06-10] MEDS ORDERED: Lidocaine 2% w/Epinephrine 1:200K 20 ML VIAL ONE (04:47)
== END 2020-06-10 05:17 | disposition home or self-care (01) ==
LOC: BURERS 04:29
DX: L02.214 Cutaneous abscess of groin (principal); E11.9 Type 2 diabetes mellitus without complications; I10 Essential (primary) hypertension; E78.2 Mixed hyperlipidemia; J45.909 Unspecified asthma, uncomplicated; Z79.51 Long term (current) use of inhaled steroids; Z79.899 Other long term (current) drug therapy
CPT/HCPCS: 10060

== ENCOUNTER 2020-12-18 22:29 | Emergency (ER) | payer OTHER, SELFPAY ==
[2020-12-18] MEDS ORDERED: Bacitracin 1 PK ONE (23:21)
== END 2020-12-18 22:57 | disposition home or self-care (01) ==
LOC: BURERS 22:29
DX: J06.9 Acute upper respiratory infection, unspecified (principal); E11.9 Type 2 diabetes mellitus without complications; I10 Essential (primary) hypertension; E78.2 Mixed hyperlipidemia; J45.909 Unspecified asthma, uncomplicated; J42 Unspecified chronic bronchitis; E28.2 Polycystic ovarian syndrome; Z79.899 Other long term (current) drug therapy
CPT/HCPCS: 99281

== ENCOUNTER 2021-02-14 21:38 | Emergency (ER) | payer OTHER, SELFPAY ==
[2021-02-14] MEDS ORDERED: HYDROcodone/Acetaminophen 5/325 mg Tablet ONE (22:10)
[2021-02-14] MEDS ORDERED: Ketorolac Tromethamine 30 MG/ML VIAL ONE (22:11)
== END 2021-02-14 22:15 | disposition home or self-care (01) ==
LOC: BURERS 21:38
DX: M70.61 Trochanteric bursitis, right hip (principal); E11.9 Type 2 diabetes mellitus without complications; I10 Essential (primary) hypertension; E78.2 Mixed hyperlipidemia; J45.909 Unspecified asthma, uncomplicated; Z79.899 Other long term (current) drug therapy
CPT/HCPCS: 96372; 99283; J1885

== ENCOUNTER 2021-05-21 18:08 | Emergency (ER) | payer OTHER ==
[2021-05-21] MEDS ORDERED: traMADol HCl 50 MG TAB ONE (18:40)
[2021-05-21] MEDS ORDERED: Dexamethasone 4 MG TAB ONE (18:40)
== END 2021-05-21 18:44 | disposition home or self-care (01) ==
LOC: BURERS 18:08
DX: M70.61 Trochanteric bursitis, right hip (principal); G89.29 Other chronic pain; I10 Essential (primary) hypertension; E78.5 Hyperlipidemia, unspecified
CPT/HCPCS: 99283; J8540

== ENCOUNTER 2021-06-21 11:27 | Emergency (ER) | payer OTHER ==
[2021-06-22 10:22] LABS: SARS-CoV-2 PCR by NAA Not Detected (NotDetected)
== END 2021-06-21 12:03 | disposition home or self-care (01) ==
LOC: BURERS 11:27
DX: J02.9 Acute pharyngitis, unspecified (principal); Z20.822 Contact with and (suspected) exposure to COVID-19; F17.210 Nicotine dependence, cigarettes, uncomplicated; E78.5 Hyperlipidemia, unspecified; I10 Essential (primary) hypertension; E11.9 Type 2 diabetes mellitus without complications; J45.909 Unspecified asthma, uncomplicated
CPT/HCPCS: 87804; 99283; U0003; U0005

== ENCOUNTER 2021-11-09 19:50 | Emergency (ER) | payer OTHER, SELFPAY | END 2021-11-09 20:42 | disposition home or self-care (01) | LOC: BURERS 19:50 | DX: M79.661 Pain in right lower leg (principal); M79.652 Pain in left thigh; G89.29 Other chronic pain; E11.9 Type 2 diabetes mellitus without complications; I10 Essential (primary) hypertension; E78.5 Hyperlipidemia, unspecified; F17.210 Nicotine dependence, cigarettes, uncomplicated | CPT/HCPCS: 99283 ==

== ENCOUNTER 2022-07-12 14:00 | Emergency (ER) | payer OTHER | END 2022-07-12 15:28 | disposition home or self-care (01) | LOC: BURERS 14:00 | DX: M71.21 Synovial cyst of popliteal space [Baker], right knee (principal); I10 Essential (primary) hypertension; E78.5 Hyperlipidemia, unspecified; F17.210 Nicotine dependence, cigarettes, uncomplicated; E11.9 Type 2 diabetes mellitus without complications; J45.909 Unspecified asthma, uncomplicated; Z79.899 Other long term (current) drug therapy; Z79.4 Long term (current) use of insulin ==

== ENCOUNTER 2022-09-29 09:45 | Emergency (ER) | payer OTHER ==
[2022-09-29] MEDS ORDERED: Ondansetron ODT 4 MG TAB ONE (10:41)
== END 2022-09-29 10:43 | disposition home or self-care (01) ==
LOC: BURERS 09:45
DX: R11.2 Nausea with vomiting, unspecified (principal); R19.7 Diarrhea, unspecified; E11.9 Type 2 diabetes mellitus without complications; E78.5 Hyperlipidemia, unspecified; I10 Essential (primary) hypertension; J45.909 Unspecified asthma, uncomplicated; Z79.899 Other long term (current) drug therapy
CPT/HCPCS: 99283; Q0162

== ENCOUNTER 2023-02-17 10:21 | Emergency (ER) | payer OTHER ==
[2023-02-17] MEDS ORDERED: Ondansetron ODT 4 MG TAB ONE (10:48)
[2023-02-17] MEDS ORDERED: Insulin Regular 300 UNITS/3 ML VIAL ONE (11:14)
[2023-02-17 11:34] LABS: #Basophils 0.1 thou/uL (0.0-0.2); #Eosinphils 0.1 thou/uL (0.0-0.7); #Lymphocytes 2.9 thou/uL (1.20-3.40); #Monocytes 0.4 thou/uL (0.11-0.59); %Basophils 1.6 % (0.0-1.0); %Monocytes 4.5 % (0.0-10.0); %Neutrophils 58.9 % (42.0-75.0); Hematocrit 43.7 % (36.0-47.0); Hemoglobin 13.8 g/dL (12.0-16.0); Mean Corpuscular HGB CONC 31.7 g/dL (32.0-36.0); Mean Corpuscular Hemoglobin 25.6 pg (27.0-31.0); Mean Corpuscular Volume 80.7 fl (78.0-98.0); Mean Platelet Volume 10.3 fL (7.4-10.4); Platelet Count 282 10x3/uL (130-400); RBC Distribution Width 11.5 % (11.5-14.5); Red Blood Cell (RBC) Count 5.41 mill/uL (4.20-5.40); White Blood Cell (WBC) Count 8.5 10x3/uL (4.8-10.8)
[2023-02-17 11:47] LABS: ALT (SGPT) 19 U/L (8-55); AST (SGOT) 13 U/L (5-34); Alkaline Phosphatase 82 U/L (40-110); Anion Gap 19 mmol/L (10-20); BUN (Urea Nitrogen) 7 mg/dL (7.0-18.7); Bilirubin, Total 0.3 mg/dL (0.2-1.2); Calc. Creatinine Clearance 0 mL/min (70-130); Calcium 9.3 mg/dL (7.8-10.44); Carbon Dioxide 21 mmol/L (22-29); Chloride 101 mmol/L (98-107); Estimated GFR 92; Globulin 4.1 g/dL (2.4-3.5); Potassium 3.8 mmol/L (3.5-5.1); Protein, Total 8.1 g/dL (6.0-8.3); Sodium 137 mmol/L (136-145)
[2023-02-17 11:52] LABS: Glucose 406 mg/dL (70-105)
[2023-02-17 12:02] LABS: Base Excess-Venous 0.4 mmol/L (-2.0 to 3.0); Bicarbonate (HCO3v) 26.2 mmol/L (22.0-28.0); CO2 Tension (PvCO2) 45.1 mmHg (42.0-51.0); Calcium, Ionized 1.15 mmol/L (1.15-1.33); Chloride 102 mmol/L (98-107); Hemoglobin - Calc 15.2 g/dL (12.0-16.0); Potassium 3.9 mmol/L (3.5-5.1); Sodium 136 mmol/L (138-145); T. Carbon Dioxide 27.6 mmol/L (22.0-28.0); vO2 Saturation-calc 90.5 % (60.0-85.0)
== END 2023-02-17 13:17 | disposition home or self-care (01) ==
LOC: BURERS 10:21
DX: E11.65 Type 2 diabetes mellitus with hyperglycemia (principal); I10 Essential (primary) hypertension; Z79.01 Long term (current) use of anticoagulants; Z79.899 Other long term (current) drug therapy
CPT/HCPCS: 36416; 80053; 82330; 82803; 85025; 96361; 96374; 96376; J1815; Q0162

== ENCOUNTER 2023-02-25 11:46 | Emergency (ER) | payer OTHER ==
[2023-02-25] MEDS ORDERED: Dicyclomine 20 MG TAB ONE (12:31)
[2023-02-25] MEDS ORDERED: predniSONE 20 MG TAB ONE (12:31)
== END 2023-02-25 12:40 | disposition home or self-care (01) ==
LOC: BURERS 11:46
DX: M25.551 Pain in right hip (principal); R19.7 Diarrhea, unspecified; I10 Essential (primary) hypertension; E11.9 Type 2 diabetes mellitus without complications; F17.210 Nicotine dependence, cigarettes, uncomplicated
CPT/HCPCS: 99283; J7512

== ENCOUNTER 2023-03-01 21:11 | Emergency (ER) | payer OTHER | END 2023-03-01 22:12 | disposition home or self-care (01) | LOC: BURERS 21:11 | DX: B34.9 Viral infection, unspecified (principal); F17.210 Nicotine dependence, cigarettes, uncomplicated; E11.9 Type 2 diabetes mellitus without complications; I10 Essential (primary) hypertension; Z20.822 Contact with and (suspected) exposure to COVID-19; Z79.899 Other long term (current) drug therapy; Z79.84 Long term (current) use of oral hypoglycemic drugs | CPT/HCPCS: 87635; 99283 ==

== ENCOUNTER 2023-04-14 22:06 | Emergency (ER) | payer OTHER ==
[2023-04-14] MEDS ORDERED: Ondansetron ODT 4 MG TAB ONE (22:33)
[2023-04-14 22:49] LABS: Bilirubin Small (Negative); Blood, Urine Negative (Negative); Clarity Clear (Clear); Glucose, Urine (Dipstick) Negative (Negative); Ketone, Urine Negative (Negative); Leukocyte Negative (Negative); Nitrite Negative (Negative); Protein, Urine (Dipstick) 100 mg/dL (Neg-Trace); Specific Gravity, Urine 1.032 (1.002-1.036)
[2023-04-14 22:50] LABS: Pregnancy Test - Urine (BHCG) Negative (Negative); Pregu Control Background? CLEAR/WHITE (CLR/WHITE); Pregu Control Bar Appear? YES (CONTROL BAR); Specific Gravity 1.032 (1.002-1.036)
[2023-04-14 22:56] LABS: Bacteria/HPF 2+ HPF (None Seen); CAUTI Indications for Culture Alt mental st,lethar; Mucous/LPF 1+ LPF (<2+); RBC/HPF None Seen HPF (0-3); Transitional Epithelial 0-3 HPF (None Seen)
[2023-04-14 22:58] LABS: Urine Culture Reflex No No
== END 2023-04-14 23:26 | disposition home or self-care (01) ==
LOC: BURERS 22:06
DX: N39.0 Urinary tract infection, site not specified (principal); F17.210 Nicotine dependence, cigarettes, uncomplicated; I10 Essential (primary) hypertension; J45.909 Unspecified asthma, uncomplicated; E11.9 Type 2 diabetes mellitus without complications; Z79.84 Long term (current) use of oral hypoglycemic drugs; Z79.51 Long term (current) use of inhaled steroids
CPT/HCPCS: 36416; 81001; 81025; 99284; Q0162

== ENCOUNTER 2023-11-06 19:08 | Emergency (ER) | payer OTHER, SELFPAY ==
[2023-11-06] MEDS ORDERED: Cyclobenzaprine 10 MG TAB ONE (20:19)
== END 2023-11-06 20:25 | disposition home or self-care (01) ==
LOC: BURERS 19:08
DX: S86.911A Strain of unspecified muscle(s) and tendon(s) at lower leg level, right leg, initial encounter (principal); R51.9 Headache, unspecified; I10 Essential (primary) hypertension; F17.210 Nicotine dependence, cigarettes, uncomplicated; E78.5 Hyperlipidemia, unspecified; E11.40 Type 2 diabetes mellitus with diabetic neuropathy, unspecified; J45.909 Unspecified asthma, uncomplicated; Z79.899 Other long term (current) drug therapy; Z79.85 Long-term (current) use of injectable non-insulin antidiabetic drugs; V40.0XXA Car driver injured in collision with pedestrian or animal in nontraffic accident, initial encounter
CPT/HCPCS: 99283